=== PATIENT | male | born 1945 | race Caucasian/White ===

== ENCOUNTER 2020-04-23 17:07 | Observation (INO) | payer MEDICARE ==
[~2020-04-23] VITALS: Ht 182.9 cm; Wt 100.1 kg
[2020-04-23 17:29] LABS: BASOPHILS ABSOLUTE AUTO 0.06 K/mm3 (0.00-0.23); BASOPHILS PERCENT AUTO 1 % (0-2); EOSINOPHILS ABSOLUTE AUTO 0.24 K/mm3 (0.00-0.68); EOSINOPHILS PERCENT AUTO 2 % (0-6); Hematocrit 45.2 % (37.0-53.0); Hemoglobin 14.7 g/dL (13.5-17.5); IMMATURE GRAN ABSOLUTE AUTO 0.07 K/mm3 (0.00-0.10); IMMATURE GRAN PERCENT AUTO 1 % (0-1); LYMPHOCYTES ABSOLUTE AUTO 5.26 K/mm3 (0.84-5.20); LYMPHOCYTES PERCENT AUTO 42 % (21-46); MONOCYTES ABSOLUTE AUTO 1.05 K/mm3 (0.16-1.47); MONOCYTES PERCENT AUTO 8 % (4-13); Mean Corpuscular HGB 29.6 pg (26.0-34.0); Mean Corpuscular HGB Conc 32.5 g/dL (31.5-36.5); Mean Corpuscular Volume 91 fL (80-100); Mean Platelet Volume 9.3 fL (9.1-12.4); NEUTROPHILS ABSOLUTE AUTO 5.99 K/mm3 (1.96-9.15); NEUTROPHILS PERCENT AUTO 47 % (41-73); Platelet Count 254 K/mm3 (150-400); RDW Coefficient Variation 12.6 % (11.7-14.2); RDW Standard Deviation 42.1 fL (35.1-46.3); Red Blood Cell Count 4.97 M/mm3 (4.30-5.90); White Blood Cell Count 12.67 K/mm3 (4.00-11.30)
[2020-04-23 17:52] LABS: Alanine Aminotransfer (ALT/SGP 34 U/L (12-78); Albumin, Blood 3.7 g/dL (3.4-5.0); Albumin/Globulin Ratio 1.2 (0.8-1.8); Alk Phos 65 U/L (50-136); Anion Gap 8 mmol/L (6-16); Aspartate Aminotrans (AST/SGOT 25 U/L (12-37); Bilirubin, Total 0.4 mg/dL (0.1-1.0); Blood Urea Nitrogen 17 mg/dL (8-24); Bun/Creatinine Ratio 16.7 (12.0-20.0); CO2, Blood 20 mmol/L (21-32); Calcium, Blood 8.2 mg/dL (8.5-10.1); Chloride, Blood 108 mmol/L (98-108); Creatinine, Blood 1.02 mg/dL (0.60-1.20); Glomerular Filtration Rate >60 (60-); Glucose, Blood 92 mg/dL (70-99); Potassium, Blood 3.9 mmol/L (3.5-5.5); Sodium, Blood 136 mmol/L (136-145); Total Protein, Blood 6.7 g/dL (6.4-8.2); Troponin I 0.018 ng/mL (0.000-0.040)
[2020-04-23] MEDS ORDERED: EUTHYROX50 MC1 PO (18:20)
[2020-04-23 21:54] LABS: Magnesium, Blood 1.8 mg/dL (1.6-2.4)
--- NOTE | 2020-04-23 22:23 | NUR ---
REPORT RECEIVED FROM CHERYLE BUSH RN. PT TRANSPORTED TO MEDICAL FLOOR VIA [facility], PT TRANSFERRED SELF FROM GURNEY TO BED. NO S/S ACUTE DISTRESS NOTED ON ARRIVAL, RESPS EVEN AND UNLABORED. HR STABLE AT THIS POINT. PT DENIES CP, PRESSURE, SOB. ORIENTED TO ROOM AND UNIT. SITUATED IN ROOM. REMINDED TO CALL WITH NEEDS. INDICATED UNDERSTANDING. WILL CONTINUE TO MONITOR.
--- NOTE | 2020-04-24 04:57 | NUR ---
SHIFT SUMMARY PT HAS HAD NO ACUTE EVENTS SINCE ARRIVAL TO MEDICAL FLOOR. VS AND HR HAVE REMAINED STABLE, NO C/O CP, PRESSURE, OR SOB. PT CALLS APPROPRIATELY TO MAKE NEEDS KNOWN, SLEPT WELL FOR A FEW HOURS AFTER ARRIVAL. DENIES NEEDS AT THIS TIME. PT AWAITING SCHEDULED ECHO FOR THIS AM. CALL LIGHT, POSSESSIONS IN REACH. WILL CONTINUE TO MONITOR UNTIL DAY RN ASSUMES CARE.
[2020-04-24 05:02] LABS: Anion Gap 5 mmol/L (6-16); Blood Urea Nitrogen 19 mg/dL (8-24); Bun/Creatinine Ratio 20.8 (12.0-20.0); CHOL/HDL RATIO 5.8; CO2, Blood 24 mmol/L (21-32); Calcium, Blood 8.2 mg/dL (8.5-10.1); Chloride, Blood 112 mmol/L (98-108); Cholesterol 180 mg/dL (50-200); Creatinine, Blood 0.91 mg/dL (0.60-1.20); Glomerular Filtration Rate >60 (60-); Glucose, Blood 99 mg/dL (70-99); HDL Cholesterol 31 mg/dL (>39); LDL/HDL RATIO 3.5; Low Density Lipoprotein Chol 107 mg/dL (0-110); Sodium, Blood 141 mmol/L (136-145); Triglycerides 209 mg/dL (30-160); Very Low Density Lipoprot Chol 41 mg/dL (6-32)
--- NOTE | 2020-04-24 14:24 | NUR ---
PATIENT HAS HAD AN UNEVENTFUL DAY. DENIES ANY CHEST PAIN OR DISCOMFORT. STATES HE IS READY TO DISCHARGE HOME. VITALS STABLE. TELE REMAINS IN PLACE. PATIENT GETS UP FREQUENTLY TO AMBULATE. VERY PLEASANT AND COOPERATIVE WITH STAFF. PATIENT IN HIS ROOM AT THIS TIME WITH AT BEDSIDE. WILL CONTINUE TO MONITOR AND PROVIDE CARE NEEDED.
--- NOTE | 2020-04-24 18:51 | NUR ---
Per admit trigger, I met with Mr. Billy to offer education about advanced care planning. his was at [facility] and appeared very interested in completing an Advanced Directive for pt. I provided education on the benefits and purpose top good effect. They would like to discuss this document i private. Advised that sales support advisor services would remain available to assist.
--- NOTE | 2020-04-24 19:10 | NUR ---
ASSUMED CARE RECEIVED REPORT FROM JOEY SHELLEY. ASSUMED CARE OF PT. RESTING COMFORTABLY AT THIS TIME. NO S/S ACUTE DISTRESS NOTED. VISIBLY FRUSTRATED REGARDING LACK OF COMMUNICATION R/T ECHO RESULTS. USED ACTIVE LISTENING AND THERAPEUTIC COMMUNICATION, REASSURED PT. DENIES NEEDS AT THIS TIME, CALL LIGHT, POSSESSIONS IN REACH. INDEPENDENT IN ROOM. WILL CONTINUE TO MONITOR.
--- NOTE | 2020-04-24 22:45 | NUR ---
THIS RN IN ROOM ASSESSING PT, PT ASKING QUESTIONS ABOUT HIS MEDICATIONS. THIS RN EXPLAINING HOW HIS BETA BLOCKERS ARE ACTING ON HIS HEART, PT INDICATES UNDERSTANDING. PT VOICING FRUSTRATION REGARDING THE LACK OF COMMUNICATION R/T THE ECHO THAT WAS DONE THIS AM. THIS RN EDUCATING PT ON ECHO PROCEDURE AND INDICATIONS R/T DX, REASSURED PT THAT RESULTS ARE IN, AND IF THERE WAS SOMETHING ABNL, THE PHYSICIANS ARE EXCELLENT AT TIMELY COMMUNICATION WITH PT. PT CONTINUING TO VERBALIZE FRUSTRATIONS THAT HE ISN'T GETTING ANSWERS. REASSURED PT THAT THIS RN WILL PASS ALONG TO DAY RN TO REQUEST THAT THE DOCTOR COME SPEAK WITH THE PT. PT AGREEABLE, MUCH LESS FRUSTRATED, APPRECIATIVE. WCTM AND SPEAK TO DAY RN REGARDING PT'S REQUESTS.
--- NOTE | 2020-04-25 06:42 | NUR ---
SHIFT SUMMARY PT HAS HAD AN UNEVENTFUL NIGHT, PRIOR TO THIS AM. THIS RN NOTIFED BY PCU AWNING HANGER SUPERVISOR AT 0620 OF PT HEART RATE INCREASING TO 160. PT UP IN ROOM WALKING AROUND, BRUSHING HIS TEETH. PT DENIES SOB, CP OR DIZZINESS AT THIS TIME. CALLED AWNING HANGER SUPERVISOR TO RE-CHECK HR, STATES IT CAME DOWN TO A RATE OF 100, THEN A FEW MINUTES LATER, TO 80. PT HADN'T HAD PRIOR CARDIAC EVENTS T/O NIGHT. SLEPT T/O. VS STABLE. PT HOPEFUL TO DISCHARGE HOME TODAY, AND WANTS TO SPEAK WITH THE DOCTOR REGARDING HIS ECHO RESULTS. DENIES NEEDS AT THIS TIME. CALL LIGHT, POSSESSIONS IN REACH. WCTM UNTIL DAY RN ASSUMES CARE.
[2020-04-25] MEDS ORDERED: ASPI81CH PO (10:12)
[2020-04-25] MEDS ORDERED: ATEN25 PO (10:14)
--- NOTE | 2020-04-25 11:09 | NUR ---
DISCHARGE SUMMARY PT LEFT WITH VIA CAR. EDUCATION GIVEN TO PT, MEDS FAXED TO [facility]. PIV REMOVED, QUESTIONS ANSWERED. BELONGINGS WENT W PT. PT WILL CALL FOR QUESTIONS
== END 2020-04-25 11:07 | disposition home or self-care (01) ==
LOC: ER 17:07 → MEDS 21:32
PROVIDERS: Nurse Practitioner Acute Care; Physician Assistant; ADMIT Internal Medicine
DX: I48.92 Unspecified atrial flutter (principal); E03.9 Hypothyroidism, unspecified; Z79.899 Other long term (current) drug therapy
CPT/HCPCS: 36415; 71045; 80048; 80053; 80061; 83735; 83880; 84443; 84484; 85025; 93005; 93010; 96372; 96374; 96375; 99285-25; A9270; A9270-GY; C8929; G0378; J0153; J1650; Q9957

== ENCOUNTER → 2020-09-22 | Outpatient (CLI) | payer MEDICARE ==
[~2020-09-22] MED LIST: ASPI81CH PO; ATEN25 PO; EUTHYROX50 MC1 PO
[2020-09-24 17:08] LABS: CORONAVIRUS (COVID19) CSH-NRL Positive (Negative)
== END | disposition home or self-care (01) ==
LOC: LAB SHORT 13:39
PROVIDERS: Physician Assistant
DX: U07.1 COVID-19 (principal)
CPT/HCPCS: U0003

== ENCOUNTER → 2021-10-09 | Outpatient (CLI) | payer MEDICARE ==
[2021-10-09 13:46] LABS: BASOPHILS ABSOLUTE AUTO 0.08 K/mm3 (0.00-0.23); BASOPHILS PERCENT AUTO 1 % (0-2); EOSINOPHILS PERCENT AUTO 3 % (0-6); IMMATURE GRAN ABSOLUTE AUTO 0.05 K/mm3 (0.00-0.10); IMMATURE GRAN PERCENT AUTO 1 % (0-1); LYMPHOCYTES PERCENT AUTO 39 % (21-46); MONOCYTES ABSOLUTE AUTO 0.95 K/mm3 (0.16-1.47); MONOCYTES PERCENT AUTO 10 % (4-13); Mean Corpuscular HGB 30.2 pg (26.0-34.0); Mean Corpuscular HGB Conc 33.3 g/dL (31.5-36.5); Mean Corpuscular Volume 91 fL (80-100); Mean Platelet Volume 9.8 fL (9.1-12.4); NEUTROPHILS ABSOLUTE AUTO 4.71 K/mm3 (1.96-9.15); NEUTROPHILS PERCENT AUTO 47 % (41-73); Platelet Count 283 K/mm3 (150-400); RDW Standard Deviation 42.7 fL (35.1-46.3); Red Blood Cell Count 4.64 M/mm3 (4.30-5.90); White Blood Cell Count 9.99 K/mm3 (4.00-11.30)
[2021-10-09 14:25] LABS: Alanine Aminotransfer (ALT/SGP 35 U/L (12-78); Albumin, Blood 3.6 g/dL (3.4-5.0); Albumin/Globulin Ratio 1.2 (0.8-1.8); Alk Phos 61 U/L (50-136); Anion Gap 6 mmol/L (6-16); Aspartate Aminotrans (AST/SGOT 15 U/L (12-37); Bilirubin, Total 0.7 mg/dL (0.1-1.0); Blood Urea Nitrogen 17 mg/dL (8-24); Bun/Creatinine Ratio 19.3 (12.0-20.0); CO2, Blood 24 mmol/L (21-32); Calcium, Blood 9.1 mg/dL (8.5-10.1); Chloride, Blood 107 mmol/L (98-108); Creatinine, Blood 0.88 mg/dL (0.60-1.20); Globulin, Blood 2.9 g/dL (2.2-4.0); Glomerular Filtration Rate >60 (60-); Glucose, Blood 109 mg/dL (70-99); Potassium, Blood 4.5 mmol/L (3.5-5.5); Sodium, Blood 137 mmol/L (136-145); Total Protein, Blood 6.5 g/dL (6.4-8.2)
[2021-10-09 14:32] LABS: PSA, %Free 11.3 %; PSA, Free 0.614 ng/mL
== END | disposition home or self-care (01) ==
LOC: LAB SHORT 12:49
PROVIDERS: Physician Assistant
DX: E03.9 Hypothyroidism, unspecified (principal); R97.20 Elevated prostate specific antigen [PSA]; R53.83 Other fatigue
CPT/HCPCS: 80053; 84153; 84154; 84443; 85025

== ENCOUNTER 2022-01-06 13:20 | Emergency (ER) | payer OTHER ==
[~2022-01-06] VITALS: Ht 182.9 cm; Wt 103.4 kg
[2022-01-06 13:56] LABS: Hematocrit 48.7 % (37.0-53.0); Hemoglobin 16.5 g/dL (13.5-17.5); Mean Corpuscular HGB 30.5 pg (26.0-34.0); Mean Corpuscular HGB Conc 33.9 g/dL (31.5-36.5); Mean Corpuscular Volume 90 fL (80-100); Mean Platelet Volume 9.3 fL (9.1-12.4); Platelet Count 320 K/mm3 (150-400); RDW Coefficient Variation 13.3 % (11.7-14.2); RDW Standard Deviation 43.6 fL (35.1-46.3); Red Blood Cell Count 5.41 M/mm3 (4.30-5.90); White Blood Cell Count 13.61 K/mm3 (4.00-11.30)
[2022-01-06 14:12] LABS: Alanine Aminotransfer (ALT/SGP 34 U/L (12-78); Alk Phos 71 U/L (50-136); Anion Gap 8 mmol/L (6-16); Aspartate Aminotrans (AST/SGOT 21 U/L (12-37); Bilirubin, Total 0.5 mg/dL (0.1-1.0); Blood Urea Nitrogen 22 mg/dL (8-24); Bun/Creatinine Ratio 22.4 (12.0-20.0); CO2, Blood 21 mmol/L (21-32); Calcium, Blood 9.9 mg/dL (8.5-10.1); Chloride, Blood 109 mmol/L (98-108); Creatinine, Blood 0.98 mg/dL (0.60-1.20); Glomerular Filtration Rate >60 (60-); Glucose, Blood 97 mg/dL (70-99); Potassium, Blood 4.6 mmol/L (3.5-5.5); Sodium, Blood 138 mmol/L (136-145)
[2022-01-06 14:20] LABS: BASOPHILS PERCENT MAN 0 % (0-2); EOSINOPHILS ABSOLUTE MAN 0.13 K/mm3 (0.00-0.68); EOSINOPHILS PERCENT MAN 1 % (0-6); LYMPHOCYTES ABSOLUTE MAN 4.49 K/mm3 (0.84-5.20); LYMPHOCYTES PERCENT MAN 27 % (21-46); MONOCYTES ABSOLUTE MAN 0.95 K/mm3 (0.16-1.47); MONOCYTES PERCENT MAN 7 % (4-13); NEUTROPHILS ABSOLUTE MAN 8.02 K/mm3 (1.96-9.15); SEG NEUTROPHILS PERCENT MAN 59 % (41-73); TOTAL CELLS COUNTED 100
[2022-01-06 14:21] LABS: LYMPHOCYTES % ATYPICAL MANUAL 6 % (0-0)
== END 2022-01-06 15:55 | disposition home or self-care (01) ==
LOC: ER 13:20
PROVIDERS: Student in an Organized Health Care Education/Training Program
DX: I48.92 Unspecified atrial flutter (principal); E03.9 Hypothyroidism, unspecified; Z79.82 Long term (current) use of aspirin; Z79.899 Other long term (current) drug therapy; Z11.59 Encounter for screening for other viral diseases; R53.82 Chronic fatigue, unspecified; Z87.891 Personal history of nicotine dependence
CPT/HCPCS: 36415; 71046; 80048; 80053; 80061; 83735; 84484; 85025; 85651; 86140; 86225; 86235; 86803; 92960; 93005; 93010; 96374; 99285-25; J2704; J3010; J7030

== ENCOUNTER → 2022-01-06 | Outpatient (CLI) | payer OTHER ==
[2022-01-06 13:43] LABS: Anion Gap 7 mmol/L (6-16); Blood Urea Nitrogen 23 mg/dL (8-24); Bun/Creatinine Ratio 24.2 (12.0-20.0); C-REACTIVE PROTEIN, EXT RANGE <0.290 mg/dL (0.000-0.300); CHOL/HDL RATIO 5.4; CO2, Blood 23 mmol/L (21-32); Calcium, Blood 10.1 mg/dL (8.5-10.1); Chloride, Blood 108 mmol/L (98-108); Cholesterol 193 mg/dL (50-200); Creatinine, Blood 0.95 mg/dL (0.60-1.20); Glomerular Filtration Rate >60 (60-); Glucose, Blood 103 mg/dL (70-99); HDL Cholesterol 36 mg/dL (>39); LDL/HDL RATIO 3.5; Low Density Lipoprotein Chol 126 mg/dL (0-110); Magnesium, Blood 2.4 mg/dL (1.6-2.4); Potassium, Blood 4.6 mmol/L (3.5-5.5); Sodium, Blood 138 mmol/L (136-145); Triglycerides 155 mg/dL (30-160); Very Low Density Lipoprot Chol 31 mg/dL (6-32)
[2022-01-07 19:08] LABS: ANA DIRECT Negative (Negative); ANTI-DNA (DS) AB QN 2 IU/mL (0-9); RNP ANTIBODIES 0.2 AI (0.0-0.9); SJOGREN'S ANTI-SS-A <0.2 AI (0.0-0.9); SJOGREN'S ANTI-SS-B <0.2 AI (0.0-0.9); SMITH ANTIBODIES <0.2 AI (0.0-0.9)
== END ==
LOC: LAB SHORT 12:39
PROVIDERS: Family Medicine
DX: Z11.59 Encounter for screening for other viral diseases (principal); I48.92 Unspecified atrial flutter; R53.82 Chronic fatigue, unspecified; Z79.899 Other long term (current) drug therapy; Z87.891 Personal history of nicotine dependence
CPT/HCPCS: 80048; 80061; 83735; 85651; 86140; 86225; 86235; 86803

== ENCOUNTER → 2022-08-27 | Outpatient (CLI) | payer OTHER ==
[2022-08-27 15:57] LABS: PSA, %Free 12.4 %; PSA, Free 0.642 ng/mL
== END | disposition home or self-care (01) ==
LOC: PLD 12:17 → LAB SHORT 12:17
PROVIDERS: Family Medicine
DX: C44.319 Basal cell carcinoma of skin of other parts of face (principal); N40.1 Benign prostatic hyperplasia with lower urinary tract symptoms; N13.8 Other obstructive and reflux uropathy
CPT/HCPCS: 84153; 84154; 88305

== ENCOUNTER → 2023-08-23 | Outpatient (CLI) | payer OTHER ==
[2023-08-23 14:39] LABS: BASOPHILS ABSOLUTE AUTO 0.09 K/mm3 (0.00-0.23); BASOPHILS PERCENT AUTO 1 % (0-2); EOSINOPHILS ABSOLUTE AUTO 0.18 K/mm3 (0.00-0.68); EOSINOPHILS PERCENT AUTO 2 % (0-6); Hematocrit 43.4 % (37.0-53.0); Hemoglobin 14.5 g/dL (13.5-17.5); IMMATURE GRAN ABSOLUTE AUTO 0.08 K/mm3 (0.00-0.10); IMMATURE GRAN PERCENT AUTO 1 % (0-1); LYMPHOCYTES ABSOLUTE AUTO 3.47 K/mm3 (0.84-5.20); LYMPHOCYTES PERCENT AUTO 38 % (21-46); MONOCYTES PERCENT AUTO 9 % (4-13); Mean Corpuscular HGB 31.3 pg (26.0-34.0); Mean Corpuscular HGB Conc 33.4 g/dL (31.5-36.5); Mean Corpuscular Volume 94 fL (80-100); Mean Platelet Volume 9.9 fL (9.1-12.4); NEUTROPHILS ABSOLUTE AUTO 4.58 K/mm3 (1.96-9.15); NEUTROPHILS PERCENT AUTO 50 % (41-73); Platelet Count 262 K/mm3 (150-400); RDW Coefficient Variation 13.2 % (11.7-14.2); RDW Standard Deviation 45.5 fL (35.1-46.3); Red Blood Cell Count 4.63 M/mm3 (4.30-5.90)
[2023-08-23 15:28] LABS: Alanine Aminotransfer (ALT/SGP 29 U/L (12-78); Albumin, Blood 3.8 g/dL (3.4-5.0); Albumin/Globulin Ratio 1.2 (0.8-1.8); Alk Phos 51 U/L (50-136); Anion Gap 7 mmol/L (6-16); Aspartate Aminotrans (AST/SGOT 17 U/L (12-37); Bilirubin, Total 0.4 mg/dL (0.1-1.0); Blood Urea Nitrogen 24 mg/dL (8-24); Bun/Creatinine Ratio 27.1 (12.0-20.0); CHOL/HDL RATIO 4.6; CO2, Blood 21 mmol/L (21-32); Chloride, Blood 108 mmol/L (98-108); Cholesterol 207 mg/dL (50-200); Creatinine, Blood 0.89 mg/dL (0.60-1.20); Globulin, Blood 3.1 g/dL (2.2-4.0); Glomerular Filtration Rate 88 (60-); Glucose, Blood 110 mg/dL (70-99); HDL Cholesterol 45 mg/dL (>39); LDL/HDL RATIO 3.1; Low Density Lipoprotein Chol 139 mg/dL (0-110); Potassium, Blood 4.6 mmol/L (3.5-5.5); Sodium, Blood 136 mmol/L (136-145); Total Protein, Blood 6.9 g/dL (6.4-8.2); Triglycerides 116 mg/dL (30-160); Very Low Density Lipoprot Chol 23 mg/dL (6-32)
== END | disposition home or self-care (01) ==
LOC: LAB SHORT 11:18 → LAB 11:18
PROVIDERS: Family Medicine
DX: E03.9 Hypothyroidism, unspecified (principal); R97.20 Elevated prostate specific antigen [PSA]; Z79.899 Other long term (current) drug therapy
CPT/HCPCS: 80053; 80061; 84153; 84443; 85025